=== PATIENT | male | born 1970 | race Caucasian/White ===

== ENCOUNTER → 2016-09-02 14:59 | Outpatient (CLI) | payer MEDICAID | END | disposition home or self-care (01) | LOC: EDBD 08-30 16:30 → D.MRI 08-30 16:30 | DX: M54.2 Cervicalgia (principal) ==

== ENCOUNTER → 2019-05-05 11:20 | Outpatient (CLI) | payer MEDICARE | END | disposition home or self-care (01) | LOC: D.US 11:20 | PROVIDERS: ATTEND Family Medicine | DX: E04.1 Nontoxic single thyroid nodule (principal) ==

== ENCOUNTER 2019-10-18 10:37 | Outpatient (CLI) | payer MEDICARE ==
[~2019-10-18] VITALS: Ht 172.7 cm; Wt 116.8 kg
--- NOTE | ~2019-10-18 | HEMODYNAMI ---
PATIENT:TERESA BRISCOE I MEDICAL RECORD: [id number] : 74 LOCATION:[facility] ADMISSION DATE: 10/18/19 Generatedon:10/18/201913:52 Patient name: TERESA BRISCOE Patient #: [id number] SSN: [id number] : 1970 Date of study: 10/18/2019 Page: Of Hemodynamic Procedure Report Patient Data Patient Demographics Procedure consent was obtained First Name: TERESA Gender: Male Last Name: LUIS FELIPE : 1970 [facility] Initial: I Age: 49 year(s) Patient #: [id number] Race: SSN: [id number] Additional ID: [id number] Contact details Address: [address] [place] [address] [place] State: [place] City: [place] Zip code: [address] Past Medical History Performed procedures and imaging results Date Procedure Procedure Results Comments 10/05/2019 Stress testing Positive->Intermediate with SPECT MPI risk Allergies Allergen Reaction Date Comments Reported Other allergy 10/18/2019 FENTANYL Admission Admission Data Admission Date: 10/18/2019 Admission Time: 10:37 Arrival Date: 10/18/2019 Arrival Time: 0:00 Insurance Payor: Medicare [facility] #: [id number] Height (in.): 68.11 BSA: 2.28 (m2) Height (cm.): 173 BMI: 39.09 (kg/m2) Weight (lbs.): 257.94 Weight (kg.): 117 Lab Results Lab Result Date: 10/18/2019 Lab Result Time: 0:00 Biochemistry Name Units Result Min Max BUN mg/dl 11 --(-*--)-- 7 18 Creatinine mg/dl 0.7 --(*---)-- 0.6 1.3 eGFR ml/min 90 --(*---)-- 90 120 NONAFRICAN CBC Name Units Result Min Max Hematocrit % 41.8 -*(----)-- 42 54 Hemoglobin g/dl 14.2 --(*---)-- 13.5 17.5 Procedure Procedure Types Cath Procedure Diagnostic Procedure C [facility] w/Coronaries Sedation Charges Moderate Sedation up to 15 minutes Procedure Description Procedure Date Procedure Date: 10/18/2019 Procedure Start Time: 13:35 Procedure End Time: 13:48 Procedure Staff Name Function Ck Zuniga MD Performing Physician Angelina Armenta RT Monitor Oh Ortega RN Nurse Avril Bustos RT Scrub Procedure Data Cath Procedure Fluoroscopy Diagnostic fluoroscopy Total fluoroscopy Time: 2.5 time: 2.5 min min Diagnostic fluoroscopy Total fluoroscopy dose: 369 dose: 369 mGy mGy Contrast Material Contrast Material Type Amount (ml) Isovue 370 57 Entry Location Entry Primary Successful Side Size Upsize Upsize Entry Closure Sher ccessful Closure Location (Fr) 1 (Fr) 2 (Fr) Remarks Device Remarks Radial Right 6 Fr Mechanical artery Short Compression Estimated blood loss: 5 ml Diagnostic catheters Device Type Used For End Catheter Placement DIAGNOSTIC Davi 110cm Procedure 5Fr catheter ([id number]) Procedure Complications No complications Procedure Medications Medication Administration Route Dosage Oxygen etCO2 Nasal cannula 2 l/min Lidocaine 2% added to field 20 Heparin Flush Bag added to field 2 bags (1000units/500ml NS) 0.9% NaCl I.V. 100 ml/hr Zofran I.V. 4 mg Radial Cocktail I.A. 1 syringe (Verapamil 2mg/Nitro 400mcg/Heparin 1500units) Versed I.V. 2 mg Dilaudid I.V. 1 mg Versed I.V. 2 mg Dilaudid I.V. 1 mg Hemodynamics Rest BSA: 2.28 (m2) HGB: 14.2 (g/dl) O2 Consumption: Estimated: 273.8 (ml/min) O2 Con sumption indexed: Estimated:120.09 (ml/min/m) Heart Rate: 69 (bpm) Pressure Samples Time Site Value (mmHg) Purpose Heart Use Rate(bpm) 13:40 LV 145/4,4 Snapshot 112 Gradients Valve Time Site Site Mean SEP/DFP Peak To Heart Use 1 2 (mmHg) (sec/min) Peak Rate (mmHg) (bpm) Aortic 13:41 LV AO 78 Snapshots Pre Cath Intra NCS Post Cath Vital Signs Time Heart Resp SPO2 etCO2 NIBP (mmHg) Rhythm Pain Sedation Rate (ipm) (%) (mmHg) Status Level (bpm) 13:24:32 68 13 96 0 173/114(155) NSR (Missing) 10(A) 13:29:05 71 27 98 36.2 190/123(150) NSR (Missing) 10(A) 13:33:44 76 11 96 37.7 190/126(162) NSR (Missing) 10(A) 13:38:20 83 15 95 37.7 194/110(126) NSR (Missing) 10(A) 13:42:46 76 23 94 37.7 168/108(133) NSR (Missing) 10(A) 13:47:15 76 25 96 30.3 178/115(136) NSR (Missing) 10(A) Medications Time Medication Route Dose Verified Delivered Reason Notes Effectiveness by by 13:23:19 Oxygen etCO2 2 l/min Ck Buffie used for Nasal Efrain Ortega RN procedure cannula 13:23:26 Lidocaine 2% added 20ml Ck Ck for local to vial Efrain Zuniga MD anesthetic field 13:23:36 Heparin Flush added 2 bags Ck Ck used for Bag to Efrain Zuniga MD procedure (1000units/500ml field NS) 13:23:46 0.9% NaCl I.V. 100 Ck Buffie Per ml/hr Efrain Ortega RN physician 13:29:37 Zofran I.V. 4 mg Ck Buffie Per Efrain Ortega RN physician 13:32:54 Versed I.V. 2 mg Ck Buffie for sedation Efrain Ortega RN 13:33:04 Dilaudid I.V. 1 mg Ck Buffie for sedation Efrain Ortega RN 13:37:45 Radial Cocktail I.A. 1 Ck Ck for (Verapamil syringe Efrain Zuniga MD vasodilation 2mg/Nitro 400mcg/Heparin 1500units) 13:40:01 Versed I.V. 2 mg Ck Buffie for sedation Efrain Ortega RN 13:40:07 Dilaudid I.V. 1 mg Ck Buffie for sedation Efrain Ortega RN Procedure Log Time Note 12:54:14 Diagnostic Cath Status : Elective 12:54:19 Arrival Date: 10/18/2019 12:00:00 AM 12:54:50 Insurance Payor : Medicare 12:55:15 Procedure Status Elective Heart Cath (OP). 12:55:19 Time tracking: Regular hours (M-F 7:00 - 5:00) 12:55:25 Plan of Care:Hemodynamics will remain stable., Cardiac rhythm will remain stable., Comfort level will be maintained., Respiratory function will remain adequate., Patient/ family verbilizes understanding of procedure., Procedure tolerated without complication., Recovers from procedure without complications.. 12:57:17 ACC Patient presents with Stable Angina CCS Anginal Class 3--Marked limitation of physical activity, angina occurs with ordinary activity.. 12:58:28 ACCPatient has been prescribed/administered the following anti-anginal medication within the last 2 weeks: None 12:58:32 Oh Ortega RN sent for patient. Start room use. 12:59:27 Lab Result : eGFR NONAFRICAN 90 ml/min 12:59:27 Lab Result : Creatinine 0.7 mg/dl 12:59:27 Lab Result : BUN 11 mg/dl 12:59:27 Lab Result : Hematocrit 41.8 % 12:59:27 Lab Result : Hemoglobin 14.2 g/dl 12:59:51 Informed consent obtained and on chart 13:01:31 Patient Height : 68.11 inches 13:01:39 Patient Weight : 257.94 lbs 13:04:18 Risk of Mortality: 0.1 13:04:23 Risk of blood transfusion: 0.2 13:04:28 Risk of ERNESTINE: 0.1 13:05:51 Patient allergic to Other allergyFENTANYL 13:08:37 H&P Date Dictated: 09/27/2019 Within 30 days and on chart.. 13:08:40 Patient NPO since Midnight. 13:08:46 Alarms reviewed by R. N. 13:08:46 Sharps counted by scrub and verified by R.N. 13:09:46 Lab results completed and on chart. 13:14:27 Patient received from Pre/Post Procedure Room to [facility] 3 Alert and oriented. Tansferred to table in Supine position. 13:14:28 Warm blankets applied, and laney hugger turned on for patient comfort. 13:14:28 Correct patient and procedure confirmed by team. 13:14:29 ECG and BP/O2 sat monitors applied to patient. 13:14:32 Pre-procedure instructions explained to patient. 13:14:32 Pre-op teaching completed and patient verbalized understanding. 13:14:33 Family in waiting room. 13:23:09 Vital chart was started 13:23:19 Oxygen 2 l/min etCO2 Nasal cannula was administered by Oh Ortega RN; used for procedure; Verbal order read back and verified. 13:23:26 Lidocaine 2% 20ml vial added to field was administered by Ck Zuniga MD; for local anesthetic; Verbal order read back and verified. 13:23:36 Heparin Flush Bag (1000units/500ml NS) 2 bags added to field was administered by Ck Zuniga MD; used for procedure; Verbal order read back and verified. 13:23:46 0.9% NaCl 100 ml/hr I.V. was administered by Oh Ortega RN; Per physician; Verbal order read back and verified. 13:23:55 Baseline sample Acquired. 13:23:57 Rhythm: sinus rhythm 13:23:59 Full Disclosure recording started 13:24:04 Is the patient allergic to Iodine/contrast media? No. 13:24:06 Was the patient premedicated? N/A 13:24:07 Is patient on blood thinner?No 13:25:40 Patient diabetic? No. 13:25:47 ----Pre-sedation anethsthesia assessment.---- 13:25:50 Previous problem with sedation/anesthesia? No ? 13:25:51 Snore? Yes 13:25:52 Sleep apnea? Yes 13:25:53 Deviated septum? No 13:25:54 Opens mouth fully? Yes 13:25:55 Sticks out tongue? Yes 13:25:58 Airway obstruction? Yes ASTHMA 13:26:02 Dentures? No ? 13:26:04 Pre procedure: right dorsailis pedis pulse 2+ Normal; easily identifiable; not easily obliterated 13:26:06 Patient pain scale 0/10 ?. 13:26:10 Modified Damaso's test Ulnar < 7 seconds 13:26:15 IV patent on arrival in left antecubital with 0.9% NaCl at KVO. 13:26:41 Stress Test: yes; abnormal ANTERIOR, APICAL AND INFERIOR 13:26:48 Right Radial & Right Groin area was prepped with chlora-prep and draped in sterile fashion 13::55 Use device set Radial Dx or PCI 13:26:56 ACIST Syringe (05127) opened to sterile field. 13:26:57 Medline Cath Pack ([id number]) opened to sterile field. 13:26:57 Bag Decanter () opened to sterile field. 13:26:58 ACIST Hand Control (31915) opened to sterile field. 13:26:59 ACIST Manifold (53873) opened to sterile field. 13:27:01 MBrace Wrist Support ([id number]) opened to sterile field. 13:27:02 NEEDLE Cook 21G 4cm Radial ([id number]) opened to sterile field. 13:27:03 EMERALD Guide Wire (433-202) opened to sterile field. 13:27:05 SHEATH 6FR RAIN ([id number]) opened to sterile field. 13:29:30 --------ALL STOP TIME OUT------ 13:29:31 Final Timeout: patient, procedure, and site verified with staff and physician. All members of the team are in agreement. 13:29:33 Right Radial & Right Groin site verified by team. 13:29:36 Fire Safety Assessment: A--An alcohol-based skin anteseptic being used preoperatively., C--Open oxygen or nitrous oxide is being used., D--An ESU, laser, or fiber-optic light is being used. 13:29:37 Zofran 4 mg I.V. was administered by Oh Ortega RN; Per physician; Verbal order read back and verified. 13:29:40 Physical assessment completed. ASA score P 2 - A patient with mild systemic disease as per Ck Zuniga MD. 13:29:44 1) 90+ Normal kidney functon but urine findings or structural abnormalities or genetic trait point to kidney disease. 13:29:46 Maximum allowable contrast dose (3.7 X eGFR X 0.75)250 ml. 13:29:50 Sedation plan: IV Moderate Sedation Medication:Versed, Fentanyl 13:32:54 Versed 2 mg I.V. was administered by Oh Ortega RN; for sedation; Verbal order read back and verified. 13:33:04 Dilaudid 1 mg I.V. was administered by Oh Ortega RN; for sedation; Verbal order read back and verified. 13:33:43 Procedure started. 13:35:06 Local anesthetic to right radial artery with Lidocaine 2% by Ck Zuniga MD.INITIAL ACCESS ONLY 13:36:28 A 6 Fr Short sheath was inserted into the Right Radial artery 13:37:11 A DIAGNOSTIC Davi 110cm 5Fr catheter ([id number]) was advanced over the wire and used for Procedure. 13:37:45 Radial Cocktail (Verapamil 2mg/Nitro 400mcg/Heparin 1500units) 1 syringe I.A. was administered by Ck Zuniga MD; for vasodilation; Verbal order read back and verified. 13:40:01 Versed 2 mg I.V. was administered by Oh Ortega RN; for sedation; Verbal order read back and verified. 13:40:07 Dilaudid 1 mg I.V. was administered by Oh Ortega RN; for sedation; Verbal order read back and verified. 13:40:17 LV hemodynamics recorded. 13:40:19 Injector settings: Ml/sec: 5, Volume: 15, 13:40:22 LV gram done using MCDANIEL 13:40:44 EF : 50 % 13:41:24 LCA angiography performed. 13:41:34 Injector settings: Ml/sec: 3, Volume: 6, 13:43:51 RCA angiography performed. 13:44:16 ACCDominant side:Co-Dominant 13:44:23 Catheter removed. 13:44:47 TR BAND Large ([id number]) opened to sterile field. 13:45:04 Sheath removed intact; hemostasis achieved with Mechanical Compression to the Right Radial artery. 13:45:57 Procedure ended.(Physican Out) 13:46:19 [place] band inflated with 15cc of air. 13:46:21 Post Procedure Pulses reassessed and unchanged 13:46:24 Post procedure: right dorsailis pedis pulse 2+ Normal; easily identifiable; not easily obliterated. 13:46:29 Post-procedure physical assessment completed. ASA score P 1 - A normal healthy patient as per Ck Zuniga MD. 13:46:32 Post procedure rhythm: unchanged. 13:46:35 Estimated blood loss: 5 ml 13:46:37 Post procedure instruction explained to patient.Patient verbalizes understanding. 13:46:37 Patient needs reinforcement of post procedure teaching. 13:46:42 Procedure type changed to Cath procedure, Diagnostic procedure, LHC, LHC w/Coronaries, Sedation Charges, Moderate Sedation up to 15 minutes 13:47:56 Procedure and supply charges have been captured, reviewed, submitted and are correct. 13:48:00 Procedure Complication : No complications 13:48:01 Vital chart was stopped 13:48:03 [facility] Findings: mild to moderate CAD (<70%) 13:48:08 Operative report dictated upon procedure completion. 13:48:08 See physician's report for complete and final results. 13:48:09 Report given to Pre/Post Procedure Room. 13:48:12 Patient transfered to Pre/Post Procedure Room with Stretcher. 13:48:26 Fluoroscopy time 02.50 minutes. 13:48:37 Fluoroscopy dose: 369 mGy 13:48:37 Flurop Dose total: 369 13:48:42 Dose Area Product 43531 mGy/cm. 13:48:46 Contrast amount:Isovue 370 57ml. 13:48:48 Maximum allowable dose exceeded? No. 13:48:49 Sharps counted by scrub and verified by R.N. 13:48:54 Procedure ended. 13:48:54 Full Disclosure recording stopped 13:50:47 End room use (Document Last) 13:51:01 End room use (Document Last) Device Usage Item Name Manufacture Quantity Catalog Hospital Part Current Minima l Lot# / Number Charge Number Stock Stock Serial# Code ACIST Acist 1 [id number] [id number] 505698 [id number] 20 Syringe Medical (53391) Systems Inc Medline Medline 1 [id number] 77457 124415 5 Cath Pack ([id number]) Bag Microtek 1 168109 36816 266782 5 Decanter Medical Inc. () ACIST Hand Acist 1 21124 207288 062595 653439 5 Control Medical (69772) Systems Inc ACIST Acist 1 00653 418325 022767 041989 5 Manifold Medical (88129) Systems Inc MBrace Advanced 1 [id number] 793716 63617 608252 5 Wrist Vascular Support Dynamics ([id number]) NEEDLE Cook Sgnam Medical 1 [id number] 604736 372952 521955 5 21G 4cm Radial ([id number]) EMERALD Cardinal 1 963-175 757448 111124 182924 5 Guide Wire [facility] (035-837) SHEATH 6FR Cardinal 1 [id number] 191288 3249191 267535 5 [facility] ([id number]) DIAGNOSTIC Terumo 1 [id number] 334022 885278 256396 5 Davi 110cm 5Fr catheter (542421) TR BAND Terumo 1 [id number] 079909 160335 [id number] 40 Large ([id number]) Signature Audit [place] Stage Time Signature Unsigned Intra-Procedure 10/18/2019 Angelina Armenta 1:51:01 PM RT(R) Intra-Procedure 10/18/2019 Oh Ortega RN 1:51:38 PM Intra-Procedure 10/18/2019 Ck Zuniga MD 1:52:31 PM [facility] [address] [place] [address]
[2019-10-18] MEDS ORDERED: CYMBALTA60 MG PO (11:32)
[2019-10-18] MEDS ORDERED: HYDRALAZINE HCL50 MG PO (11:33)
[2019-10-18] MEDS ORDERED: NORMODYNE / TR300 MG PO (11:33)
[2019-10-18] MEDS ORDERED: LISINOPRIL20 MG PO (11:34)
[2019-10-18] MEDS ORDERED: VALIUM10 MG PO (11:34)
[2019-10-18] MEDS ORDERED: HYDROCODON-ACE1 EA10 PO (11:35)
[2019-10-18] MEDS ORDERED: LINZESS145 MCG PO (11:35)
[2019-10-18 11:52] VITALS: BP 171/111; Ht 172.7 cm; Wt 116.8 kg
[2019-10-18 12:00] LABS: BASOPHILS 0.8 % (0-2); EOSINOPHILS 3.7 % (0-7); HEMATOCRIT 41.8 % (42.0-54.0); HEMOGLOBIN 14.2 g/dL (13.5-17.5); IMMATURE GRANULOCYTES 0.4 % (0-5); LYMPHOCYTES 22.9 % (15-50); MCH 30.2 pg (26.0-34.0); MCV 88.9 fL (80.0-100.0); MONOCYTES 7.7 % (2-11); NEUTROPHILS 64.5 % (40-80); PLATELET COUNT 238 10x3/uL (130-400); RDW 13.3 % (11.5-14.5); WBC 10.5 10x3/uL (4.8-10.8)
[2019-10-18 12:34] LABS: ALT (SGPT) 33 U/L (10-68); CALC OSMOLALITY 278 mosm/kg (275-300); CALCIUM 8.9 mg/dL (8.5-10.1); CHLORIDE - SERUM 106 mmol/L (98-107); CHOL - HDL RATIO 5.4 ratio (2.3-4.9); CHOLESTEROL, TOTAL 204 mg/dL (0-200); CREATININE - SERUM 0.7 mg/dL (0.6-1.3); GLUCOSE 115 mg/dL (74-106); HDL CHOLESTEROL 38 mg/dL (32-96); LDL CHOLESTEROL 106 mg/dL (0-100); LDL-HDL RATIO 2.8 ratio (1.5-3.5); POTASSIUM - SERUM 4.6 mmol/L (3.5-5.1); SODIUM 140 mmol/L (136-145); TRIGLYCERIDE 304 mg/dL (30-200); UREA NITROGEN 11 mg/dL (7-18); eGFR NON AFRICAN AMERICAN > 90 mL/min (90-120)
--- NOTE | 2019-10-18 14:00 | NUR ---
REC'D TO ROOM 5, S/P CONSTRUCTION SCHEDULER. MONITORS ESTAB. FAMILY AT BS. SEE SUPERVISOR WEAVING. ALARMS ON AND C/L IN REACH.
--- NOTE | 2019-10-18 14:11 | NUR ---
DR. GUEVARA IN TO SEE PT, UPDATE GIVEN AND QUESTIONS ANSWERED.
--- NOTE | 2019-10-18 14:15 | NUR ---
R WRIST SITE C/D/I, NO S/S BLEEDING OR HEMATOMA. VSLizbeth. KODI PROVIDED. FAMILY AT .
--- NOTE | 2019-10-18 14:45 | NUR ---
R WRIST SITE C/D/I, NO S/S BLEEDING OR HEMATOMA. AT BS. PT DENIES PAIN OR NEEDS.
--- NOTE | 2019-10-18 15:00 | NUR ---
PT ATE SANDWICH TRAY. NO N/V. R WRIST SITE C/D/I - 2CC AIR REMOVED FROM TR BAND.
--- NOTE | 2019-10-18 15:15 | NUR ---
2 MORE CC AIR REMOVED FROM TR BAND. VSS. REMAINS AT BS.
--- NOTE | 2019-10-18 15:30 | NUR ---
ALL AIR REMOVED FROM TR BAND, NO S/S BLEEDING OR HEMATOMA.
--- NOTE | 2019-10-18 15:45 | NUR ---
PIV D/C'D INTACT. ALL DISCHARGE INSTRUCTIONS REVIEWED WITH PT AND HIS . PT ALLOWED TO GET UP AND GET DRESSED.
--- NOTE | 2019-10-18 16:02 | NUR ---
TR BAND OFF, DSG APPLIED, NO BLEEDING OR SWELLING NOTED. PT D/C'D VIA WC TO PRIVATE VEHICLE. PT HAS ALL BELONGINGS AND PAPER WORK.
== END 2019-10-18 16:06 | disposition home or self-care (01) ==
LOC: D.CATH 10:37
PROVIDERS: ATTEND Internal Medicine Cardiovascular Disease
DX: I20.9 Angina pectoris, unspecified (principal); R94.31 Abnormal electrocardiogram [ECG] [EKG]; I10 Essential (primary) hypertension; R42 Dizziness and giddiness